=== PATIENT | male | born 1990 | race Hispanic/Latino ===

== ENCOUNTER 2018-09-07 23:05 | Observation (INO) | payer BC ==
[2018-09-08] MEDS ORDERED: Morphine 4 MG/ML VIAL SLOW IVP PRN ×2 (01:07→01:08)
[2018-09-08] MEDS ORDERED: Ondansetron PF 4 MG/2 ML Vial SLOW IVP PRN (01:08)
[2018-09-08] MEDS ORDERED: Acetaminophen 1,000 MG in Premix Bag 1 BAG IVPB PRN (01:09)
[2018-09-08] MEDS ORDERED: Promethazine HCl 25 MG/ML VIAL IM PRN ×2 (01:09→10:40)
[2018-09-08] MEDS: Sodium Chloride 0.9% 1,000 ML IV SCH ×2 (01:37→12:13)
[2018-09-08 01:50] VITALS: BMI 35.1
[2018-09-08] MEDS: metroNIDAZOLE 500 MG in Premix Bag 1 BAG IVPB SCH ×2 (04:15→12:05)
[2018-09-08 08:15] VITALS: BP 100/65; TEMP 99
[2018-09-08] MEDS ORDERED: traMADol HCl 50 MG TAB PO PRN ×2 (08:31)
[2018-09-08] MEDS ORDERED: Ibuprofen 600 MG TAB PO PRN (08:31)
[2018-09-08] MEDS ORDERED: Acetaminophen 500 MG TAB PO PRN (08:31)
[2018-09-08] MEDS ORDERED: Ketorolac Tromethamine 30 MG/ML VIAL ONE (08:44)
[2018-09-08] MEDS ORDERED: Fentanyl 100 MCG/2 ML VIAL ONE (08:50)
[2018-09-08] MEDS ORDERED: Famotidine/PF 20 mg/2ml Vial ONE (08:50)
[2018-09-08] MEDS ORDERED: Bupivacaine/Epinephrine 0.25% 30 ML VIAL ONE (09:38)
[2018-09-08] MEDS ORDERED: Bupivacaine HCl 0.5%/Epinephrine 1:200,000/PF 30 ml Vial ONE (09:38)
[2018-09-08] MEDS ORDERED: Promethazine HCl 25 MG/ML VIAL SLOW IVP PRN (10:40)
[2018-09-08] MEDS ORDERED: Ondansetron HCl/PF 4 MG/2 ML Vial IVP PRN (10:40)
[2018-09-08] MEDS ORDERED: Meperidine HCl/PF 25 MG/ML VIAL SLOW IVP PRN (10:40)
[2018-09-08] MEDS ORDERED: SUGAMMADEX SODIUM 500 MG/5 ML VIAL ONE (10:56)
--- NOTE | 2018-09-08 11:36 | HP ---
SUBJECTIVE: Shar Givens is a 27-year-old male patient from [place]. He lives with his family. He works in [employer] in . He has 18-hour history of right lower quadrant pain, anorexia, nausea, presented to [facility]. CAT scan confirms suspicion of appendicitis. He is transferred for care. ALLERGIES: NONE. SOCIAL HISTORY: Tobacco, none. Alcohol, none. MEDICATIONS: None. PAST SURGICAL HISTORY: Noncontributory. PAST MEDICAL HISTORY: Noncontributory. FAMILY HISTORY: Noncontributory. REVIEW OF SYSTEMS: Ten-point noncontributory. PHYSICAL EXAMINATION: VITAL SIGNS: Blood pressure 120/78, 92, 18, 99.6 degrees, 100 kilos. HEAD, EARS, EYES, NOSE, AND THROAT: Unremarkable. LUNGS: Clear to auscultation. CARDIAC: Regular rate and rhythm without murmur or gallop. ABDOMEN: Soft. Tenderness in his right lower quadrant with guarding and rebound. EXTREMITIES: Unremarkable. LABORATORY DATA: White count 19, hemoglobin 14. Basic metabolic profile unremarkable. Glucose 140. Urinalysis unremarkable. ASSESSMENT AND PLAN: Acute appendicitis by history, exam, and CAT scan. Recommend laparoscopic video appendectomy. Risk of infection, bleeding, visceral injury, open procedure discussed. Questions answered. Plan discharge home postoperatively later this morning. Job ID: [id number]
--- NOTE | 2018-09-08 12:17 | OP ---
DATE OF PROCEDURE: 09/07/2018 PREOPERATIVE DIAGNOSIS: Acute appendicitis. POSTOPERATIVE DIAGNOSIS: Acute appendicitis. PROCEDURE PERFORMED: Laparoscopic video appendectomy. ANESTHESIA: General, local of 0.5% Marcaine with epinephrine 30 mL. Baker catheter was placed at the beginning of the procedure and removed at the end. DESCRIPTION OF PROCEDURE: The patient was taken to the operating room, where under general anesthesia, abdomen was clipped of hair, prepared with ChloraPrep, and draped in routine fashion. Pneumoperitoneum to 15 mmHg was obtained with a Veress needle placed, infraumbilical incision and this was replaced with a 5 port, where laparoscope was inserted and remainder of the ports were placed under laparoscopic visualization. Right lateral subcostal incision was made and 5 port was placed. Suprapubic incision was made and a 12 port placed. The appendix was acutely inflamed without rupture. Mesoappendix was taken down with the LigaSure. The stump of the appendix dividing the appendiceal cecal area with Endo REVA blue load stapler. The appendix was placed in Endobag and removed. Stapled cecal stump was hemostatic after clip application. Irrigation was performed. Irrigant was evacuated. Pneumoperitoneum was evacuated after suprapubic fascia was approximated with 0 Vicryl GraNee needle. Good hemostasis was noted. All instruments were removed. All skin incisions were approximated with interrupted subdermal 4-0 Monocryl and Pinecraft glue applied. Job ID: [id number]
--- NOTE | 2018-09-08 12:31 | DIS ---
DATE OF ADMISSION: 09/07/2018 DATE OF DISCHARGE: 09/07/2018 DISCHARGE DIAGNOSIS: Acute appendicitis. PROCEDURES: Laparoscopic video appendectomy, CAT scan of the abdomen and pelvis in [facility] prior to transfer. HISTORY AND HOSPITAL COURSE: A 27-year-old male patient presented to [place] with a history appendicitis, elevated white count. CAT scan confirmed this. He is transferred overnight for intravenous antibiotics, taken to the operating room for laparoscopic video appendectomy, after which he recovered to discharge home. Diet and activity, as tolerated. No lifting restriction. Tylenol, ibuprofen, and Ultram p.r.n. pain. Follow up in my office in 2 to 3 weeks. Job ID: [id number]
[2018-09-08] MEDS ORDERED: Lidocaine 1% PF 5 ML VIAL ONE (14:58)
[2018-09-08] MEDS ORDERED: Succinylcholine Chloride 20 MG/ML 10 ml SYRINGE FS ONE (14:58)
[2018-09-08] MEDS ORDERED: Ondansetron PF 4 MG/2 ML Vial ONE (14:58)
[2018-09-08] MEDS ORDERED: Dexamethasone 20 MG/5 ML VIAL ONE (14:58)
[2018-09-08] MEDS ORDERED: Naloxone HCl 0.4 mg/ml Vial ONE (14:58)
[2018-09-08] MEDS ORDERED: PROPOFOL 200 MG/20 ML VIAL ONE (14:58)
[2018-09-08] MEDS ORDERED: Glycopyrrolate 0.2 MG/ML 5 ML SYRINGE ONE (14:58)
[2018-09-08] MEDS ORDERED: Clopidogrel Bisulfate 75 MG TAB ONE (17:02)
[2018-09-08] MEDS ORDERED: cefTRIAXone\\ROCEPHIN 1 GM in Sodium Chloride 0.9% 100 ML IVPB SCH (22:00)
== END 2018-09-08 17:45 | disposition home or self-care (01) ==
LOC: SURG B 23:55
PROVIDERS: ADMIT Surgery; ATTEND Surgery
PROC: 0DTJ4ZZ Resection of Appendix, Percutaneous Endoscopic Approach (ICD-10-PCS; principal; 2018-09-07)
DX: K35.80 Unspecified acute appendicitis (principal)
CPT/HCPCS: 88304; 90471; 90686; 96361; 96365; 96366; 96375; G0008; G0378; J0131; J0670; J1100; J1885; J2001; J2270; J2310; J2405; J2704; J3010; S0028

== ENCOUNTER 2024-08-03 14:23 | Emergency (ER) | payer BC, OTHER ==
[2024-08-03] MEDS ORDERED: Famotidine 20 MG TAB ONE (15:59)
[2024-08-03] MEDS ORDERED: diphenhydrAMINE 25 MG CAP ONE (15:59)
[2024-08-03] MEDS ORDERED: predniSONE 20 MG TAB ONE (15:59)
== END 2024-08-03 16:48 | disposition home or self-care (01) ==
LOC: ERS 14:23
DX: T78.40XA Allergy, unspecified, initial encounter (principal); L03.90 Cellulitis, unspecified; B20 Human immunodeficiency virus [HIV] disease; Z79.899 Other long term (current) drug therapy
CPT/HCPCS: 99282; J7512